=== PATIENT | female | born 1985 | race Caucasian/White ===

== ENCOUNTER 2018-05-23 05:36 | Inpatient (IN) | payer BC ==
[~2018-05-23] VITALS: Ht 157.5 cm; Wt 87.7 kg
[2018-05-23] MEDS ORDERED: LACTATED RINGERS 1,000 ML IV SCH ×4 (05:39→07:21)
[2018-05-23 05:46] VITALS: BP 130/66
[2018-05-23] MEDS ORDERED: NEWBORN KIT ONE (05:46)
[2018-05-23] MEDS ORDERED: PREN-3 PO (05:53)
[2018-05-23] MEDS ORDERED: LACTATED RINGERS 1,000 ML IVBOLUS ONE (06:00)
[2018-05-23] MEDS ORDERED: METOCLOPRAMIDE 5 MG/ML, 2ML IV ONE (06:00)
[2018-05-23] MEDS ORDERED: SODIUM CITRATE/CITRIC ACID 30 ML UDC PO ONE (06:00)
[2018-05-23] MEDS ORDERED: OXYTOCIN 30U/ 0.9% NaCL 500ML 500 ML ONE ×2 (06:19→11:03)
[2018-05-23 06:42] LABS: BASOPHILS # (AUTO) 0.02 x10^3/uL (0-0.1); BASOPHILS % (AUTO) 0 % (0-1); EOSINOPHILS # (AUTO) 0.02 x10^3/uL (0-0.4); EOSINOPHILS % (AUTO) 0 % (1-7); LYMPHOCYTES % (AUTO) 25 % (22-44); MD SCAN; MEAN CORPUSCULAR HEMOGLOBIN 29.6 pg (27.0-34.8); MEAN CORPUSCULAR VOLUME 87.2 fL (80-100); MEAN PLATELET VOLUME 10.5 fL (7.4-10.4); MONOCYTES # (AUTO) 0.38 x10^3/uL (0.2-0.8); MONOCYTES % (AUTO) 6 % (2-9); NEUTROPHILS # (AUTO) 4.58 x10^3/uL (1.8-6.8); NEUTROPHILS % (AUTO) 68 % (42-75); PLATELET COUNT 109 x10^3/uL (130-400); RED BLOOD COUNT 4.67 x10^6/uL (3.82-5.3); RED CELL DISTRIBUTION WIDTH 16.3 % (9.6-15.2)
[2018-05-23] MEDS ORDERED: OXYTOCIN 10 UNITS/ML, 1ML ONE ×2 (07:01→10:46)
[2018-05-23] MEDS ORDERED: EPHEDRINE 50 MG/ML, 1ML ONE ×2 (07:01→10:46)
[2018-05-23] MEDS ORDERED: ONDANSETRON 2MG/ML, 2ML ONE ×3 (07:01→10:46)
[2018-05-23] MEDS ORDERED: CEFAZOLIN 1,000 MG ONE ×3 (07:01→11:18)
[2018-05-23] MEDS ORDERED: WATER-INJECTION,STERILE 10 ML IV ONE ×2 (07:01→10:46)
[2018-05-23] MEDS ORDERED: PHENYLEPHRINE 10 MG/ML ONE ×2 (07:01→10:46)
[2018-05-23] MEDS ORDERED: morphine SULFATE/PF 0.5 MG/ML, 10ML ONE (07:02)
[2018-05-23] MEDS ORDERED: SODIUM CITRATE/CITRIC ACID 30 ML UDC ONE (07:14)
[2018-05-23] MEDS ORDERED: METOCLOPRAMIDE 5 MG/ML, 2ML ONE (07:15)
[2018-05-23] MEDS ORDERED: OXYTOCIN 30U/ 0.9% NaCL 500ML 500 ML IV SCH (07:21)
[2018-05-23] MEDS ORDERED: morphine SULFATE 10 MG/ML, 1ML IVPush PRN (07:30)
[2018-05-23] MEDS ORDERED: ONDANSETRON 2MG/ML, 2ML IV PRN (07:30)
[2018-05-23] MEDS ORDERED: MISOPROSTOL 200 MCG TABLET PR PRN (07:30)
[2018-05-23] MEDS ORDERED: RHOGAM FROM BLOOD BANK 1 NOTE EA IM/IV ONE (07:30)
[2018-05-23] MEDS ORDERED: CALCIUM CARBONATE 500 MG TAB.CHEW PO PRN (07:30)
[2018-05-23] MEDS ORDERED: MEASLES,MUMPS&RUBELLA VACC/PF 0.5 ML SQ-VACC PRN (07:30)
[2018-05-23] MEDS ORDERED: DOCUSATE 100 MG CAPSULE PO PRN (07:30)
[2018-05-23] MEDS ORDERED: ACETAMINOPHEN 325 MG TABLET PO PRN ×2 (07:30)
[2018-05-23] MEDS ORDERED: PRENATAL VIT/IRON/FA 1 EACH TABLET PO SCH (09:00)
[2018-05-23] MEDS: OXYTOCIN 30U/ 0.9% NaCL 500ML 500 ML IV SCH ×2 (09:41→11:05)
[2018-05-23] MEDS ORDERED: CARBOPROST TROMETHAMINE 250 MCG/ML, 1ML IM ONE ×3 (10:10→12:00)
[2018-05-23] MEDS ORDERED: TRANEXAMIC ACID 100 MG/ML, 10ML ONE (10:14)
[2018-05-23] MEDS ORDERED: FENTANYL PF 250 MCG/5ML ONE (10:22)
[2018-05-23] MEDS ORDERED: PROPOFOL 10 MG/ML, 20ML ONE ×2 (10:46→11:17)
[2018-05-23] MEDS ORDERED: LIDOCAINE-MPF 2% ,5ML ONE (10:46)
[2018-05-23] MEDS ORDERED: SUCCINYLCHOLINE 20 MG/ML, 10ML ONE (10:46)
[2018-05-23 10:55] LABS: BASOPHILS # (AUTO) 0.02 x10^3/uL (0-0.1); BASOPHILS % (AUTO) 0 % (0-1); EOSINOPHILS # (AUTO) 0.01 x10^3/uL (0-0.4); EOSINOPHILS % (AUTO) 0 % (1-7); LYMPHOCYTES # (AUTO) 1.08 x10^3/uL (1-3.4); LYMPHOCYTES % (AUTO) 14 % (22-44); MD NO; MEAN CORPUSCULAR HEMOGLOBIN 29.8 pg (27.0-34.8); MEAN CORPUSCULAR HGB CONC 34.4 g/dL (32.4-35.8); MEAN CORPUSCULAR VOLUME 86.4 fL (80-100); MEAN PLATELET VOLUME 9.8 fL (7.4-10.4); MONOCYTES % (AUTO) 4 % (2-9); NEUTROPHILS # (AUTO) 6.26 x10^3/uL (1.8-6.8); NEUTROPHILS % (AUTO) 82 % (42-75); PLATELET COUNT 103 x10^3/uL (130-400); RED BLOOD COUNT 3.63 x10^6/uL (3.82-5.3); RED CELL DISTRIBUTION WIDTH 16.1 % (9.6-15.2)
[2018-05-23 10:59] LABS: ALANINE AMINOTRANSFERASE 10 U/L (12-78); ALBUMIN 1.9 g/dL (3.4-5.0); ANION GAP 10 mmol/L (5-15); CALCIUM 7.8 mg/dL (8.5-10.1); CHLORIDE 111 mmol/L (98-107); CREATININE 0.54 mg/dL (0.55-1.02)
[2018-05-23] MEDS ORDERED: CEFAZOLIN PMX 2GM/50ML 50 ML IVPB SCH (11:00)
[2018-05-23 11:01] LABS: ALKALINE PHOSPHATASE 124 U/L (45-117); BILIRUBIN,TOTAL 0.2 mg/dL (0.2-1.0); TOTAL PROTEIN 4.6 g/dL (6.4-8.2)
[2018-05-23] MEDS ORDERED: GLYCOPYRROLATE 0.4 MG/2 ML, 2ML ONE ×2 (11:17)
[2018-05-23] MEDS ORDERED: ROCURONIUM 10MG/ML,5ML ONE (11:17)
[2018-05-23] MEDS ORDERED: NEOSTIGMINE 1 MG/ML, 10ML ONE (11:17)
[2018-05-23] MEDS ORDERED: METHYLERGONOVINE 0.2 MG/ML IM PRN (11:30)
[2018-05-23] MEDS ORDERED: MISOPROSTOL 200 MCG TABLET ONE (11:39)
[2018-05-23] MEDS ORDERED: METHYLERGONOVINE 0.2 MG/ML IM ONE (12:00)
[2018-05-23] MEDS ORDERED: KETOROLAC 30 MG/1 ML ONE ×2 (12:01→20:15)
[2018-05-23] MEDS: KETOROLAC 30 MG/1 ML IV SCH ×2 (12:04→20:18)
[2018-05-23] MEDS ORDERED: morphine SULFATE 10 MG/ML, 1ML ONE (12:17)
[2018-05-23] MEDS: morphine SULFATE 10 MG/ML, 1ML IVPush PRN (12:19)
[2018-05-23] MEDS ORDERED: MISOPROSTOL 200 MCG TABLET PR ONE (12:30)
[2018-05-23 13:32] LABS: BASOPHILS # (AUTO) 0.04 x10^3/uL (0-0.1); BASOPHILS % (AUTO) 0 % (0-1); EOSINOPHILS % (AUTO) 0 % (1-7); LYMPHOCYTES # (AUTO) 1.41 x10^3/uL (1-3.4); LYMPHOCYTES % (AUTO) 11 % (22-44); MD SCAN; MEAN CORPUSCULAR HEMOGLOBIN 29.4 pg (27.0-34.8); MEAN CORPUSCULAR VOLUME 86.7 fL (80-100); MEAN PLATELET VOLUME 10.6 fL (7.4-10.4); MONOCYTES % (AUTO) 4 % (2-9); NEUTROPHILS # (AUTO) 11.28 x10^3/uL (1.8-6.8); NEUTROPHILS % (AUTO) 85 % (42-75); PLATELET COUNT 114 x10^3/uL (130-400); RED CELL DISTRIBUTION WIDTH 15.7 % (9.6-15.2)
[2018-05-23 16:22] LABS: BASOPHILS % (AUTO) 0 % (0-1); EOSINOPHILS % (AUTO) 0 % (1-7); LYMPHOCYTES # (AUTO) 1.15 x10^3/uL (1-3.4); LYMPHOCYTES % (AUTO) 9 % (22-44); MD SCAN; MEAN CORPUSCULAR HEMOGLOBIN 28.9 pg (27.0-34.8); MEAN CORPUSCULAR HGB CONC 33.2 g/dL (32.4-35.8); MEAN PLATELET VOLUME 10.5 fL (7.4-10.4); MONOCYTES # (AUTO) 0.62 x10^3/uL (0.2-0.8); MONOCYTES % (AUTO) 5 % (2-9); NEUTROPHILS # (AUTO) 11.67 x10^3/uL (1.8-6.8); NEUTROPHILS % (AUTO) 87 % (42-75); PLATELET COUNT 118 x10^3/uL (130-400); RED BLOOD COUNT 3.61 x10^6/uL (3.82-5.3); RED CELL DISTRIBUTION WIDTH 15.9 % (9.6-15.2)
[2018-05-23] MEDS: CEFAZOLIN 2,000 MG in SODIUM CHLORIDE 0.9% 50 ML IV SCH (19:14)
[2018-05-23 20:29] LABS: BASOPHILS # (AUTO) 0.03 x10^3/uL (0-0.1); BASOPHILS % (AUTO) 0 % (0-1); EOSINOPHILS % (AUTO) 0 % (1-7); LYMPHOCYTES # (AUTO) 1.32 x10^3/uL (1-3.4); LYMPHOCYTES % (AUTO) 10 % (22-44); MD NO; MEAN CORPUSCULAR HEMOGLOBIN 29.9 pg (27.0-34.8); MEAN CORPUSCULAR HGB CONC 34.1 g/dL (32.4-35.8); MEAN CORPUSCULAR VOLUME 87.8 fL (80-100); MEAN PLATELET VOLUME 10.7 fL (7.4-10.4); MONOCYTES # (AUTO) 0.63 x10^3/uL (0.2-0.8); MONOCYTES % (AUTO) 5 % (2-9); NEUTROPHILS # (AUTO) 10.86 x10^3/uL (1.8-6.8); NEUTROPHILS % (AUTO) 85 % (42-75); PLATELET COUNT 109 x10^3/uL (130-400); RED BLOOD COUNT 3.11 x10^6/uL (3.82-5.3); RED CELL DISTRIBUTION WIDTH 16.1 % (9.6-15.2)
[2018-05-23] MEDS ORDERED: OXYcodone/APAP 5/325MG TABLET ONE (22:34)
[2018-05-23] MEDS: OXYcodone/APAP 5/325MG TABLET PO PRN (22:36)
[2018-05-24] MEDS: CEFAZOLIN 2,000 MG in SODIUM CHLORIDE 0.9% 50 ML IV SCH ×4 (01:05→21:36)
[2018-05-24] MEDS ORDERED: morphine SULFATE 10 MG/ML, 1ML ONE (01:46)
[2018-05-24] MEDS ORDERED: KETOROLAC 30 MG/1 ML ONE ×4 (01:49→21:02)
[2018-05-24] MEDS: morphine SULFATE 10 MG/ML, 1ML IVPush PRN (01:50)
[2018-05-24] MEDS: KETOROLAC 30 MG/1 ML IV SCH ×4 (01:50→21:07)
[2018-05-24 06:14] LABS: MEAN CORPUSCULAR HEMOGLOBIN 29.7 pg (27.0-34.8); MEAN CORPUSCULAR VOLUME 87.5 fL (80-100); MEAN PLATELET VOLUME 10.4 fL (7.4-10.4); PLATELET COUNT 100 x10^3/uL (130-400); RED BLOOD COUNT 2.57 x10^6/uL (3.82-5.3); RED CELL DISTRIBUTION WIDTH 16.3 % (9.6-15.2)
[2018-05-24 06:37] LABS: BASOPHILS # (AUTO) 0.02 x10^3/uL (0-0.1); BASOPHILS % (AUTO) 0 % (0-1); EOSINOPHILS % (AUTO) 0 % (1-7); LYMPHOCYTES # (AUTO) 1.29 x10^3/uL (1-3.4); LYMPHOCYTES % (AUTO) 16 % (22-44); MD SCAN; MONOCYTES # (AUTO) 0.41 x10^3/uL (0.2-0.8); MONOCYTES % (AUTO) 5 % (2-9); NEUTROPHILS # (AUTO) 6.18 x10^3/uL (1.8-6.8); NEUTROPHILS % (AUTO) 78 % (42-75)
[2018-05-24] MEDS ORDERED: OXYcodone/APAP 5/325MG TABLET ONE ×3 (07:53→21:39)
[2018-05-24] MEDS: OXYcodone/APAP 5/325MG TABLET PO PRN ×3 (07:59→21:40)
[2018-05-24] MEDS ORDERED: DIPHENHYDRAMINE 25 MG CAPSULE ONE (08:55)
[2018-05-24] MEDS ORDERED: DIPHENHYDRAMINE 25 MG CAPSULE PO ONE (09:00)
[2018-05-24 09:40] VITALS: BP 107/53
[2018-05-24 10:00] VITALS: BP 104/58
[2018-05-24 10:35] VITALS: BP 100/55
[2018-05-24 10:53] VITALS: BP 114/55
[2018-05-24 14:05] LABS: BASOPHILS # (AUTO) 0.02 x10^3/uL (0-0.1); BASOPHILS % (AUTO) 0 % (0-1); EOSINOPHILS % (AUTO) 0 % (1-7); LYMPHOCYTES # (AUTO) 1.26 x10^3/uL (1-3.4); LYMPHOCYTES % (AUTO) 18 % (22-44); MEAN CORPUSCULAR HEMOGLOBIN 29.9 pg (27.0-34.8); MEAN CORPUSCULAR HGB CONC 33.9 g/dL (32.4-35.8); MEAN CORPUSCULAR VOLUME 88.1 fL (80-100); MEAN PLATELET VOLUME 9.9 fL (7.4-10.4); MONOCYTES # (AUTO) 0.32 x10^3/uL (0.2-0.8); MONOCYTES % (AUTO) 5 % (2-9); NEUTROPHILS % (AUTO) 77 % (42-75); PLATELET COUNT 104 x10^3/uL (130-400); RED BLOOD COUNT 3.27 x10^6/uL (3.82-5.3); RED CELL DISTRIBUTION WIDTH 16.3 % (9.6-15.2)
[2018-05-24 14:30] LABS: MD NO
[2018-05-25] MEDS ORDERED: KETOROLAC 30 MG/1 ML ONE (02:52)
[2018-05-25] MEDS: KETOROLAC 30 MG/1 ML IV SCH (02:58)
[2018-05-25] MEDS: CEFAZOLIN 2,000 MG in SODIUM CHLORIDE 0.9% 50 ML IV SCH (03:32)
[2018-05-25] MEDS ORDERED: OXYcodone/APAP 5/325MG TABLET ONE ×2 (03:36→08:38)
[2018-05-25] MEDS: OXYcodone/APAP 5/325MG TABLET PO PRN ×4 (03:37→20:14)
[2018-05-25 06:00] LABS: MEAN CORPUSCULAR HEMOGLOBIN 29.1 pg (27.0-34.8); MEAN CORPUSCULAR HGB CONC 32.9 g/dL (32.4-35.8); MEAN CORPUSCULAR VOLUME 88.4 fL (80-100); RED BLOOD COUNT 2.96 x10^6/uL (3.82-5.3); RED CELL DISTRIBUTION WIDTH 16.5 % (9.6-15.2)
[2018-05-25 06:34] LABS: BASOPHILS # (AUTO) 0.01 x10^3/uL (0-0.1); BASOPHILS % (AUTO) 0 % (0-1); EOSINOPHILS # (AUTO) 0.06 x10^3/uL (0-0.4); EOSINOPHILS % (AUTO) 1 % (1-7); LYMPHOCYTES # (AUTO) 1.18 x10^3/uL (1-3.4); LYMPHOCYTES % (AUTO) 19 % (22-44); MD SCAN; MEAN PLATELET VOLUME 9.9 fL (7.4-10.4); MONOCYTES # (AUTO) 0.29 x10^3/uL (0.2-0.8); MONOCYTES % (AUTO) 5 % (2-9); NEUTROPHILS # (AUTO) 4.56 x10^3/uL (1.8-6.8); NEUTROPHILS % (AUTO) 75 % (42-75); PLATELET COUNT 112 x10^3/uL (130-400)
[2018-05-25] MEDS ORDERED: OXYcodone/APAP 5/325MG TABLET PO PRN (12:00)
[2018-05-25] MEDS ORDERED: ACETAMINOPHEN 325 MG TABLET PO PRN ×2 (12:00)
[2018-05-25] MEDS: DOCUSATE 100 MG CAPSULE PO PRN ×2 (12:48→20:15)
[2018-05-25 20:00] VITALS: BP 116/74
[2018-05-26] MEDS: OXYcodone/APAP 5/325MG TABLET PO PRN ×2 (02:59→12:43)
[2018-05-26 03:00] VITALS: BP 111/70
[2018-05-26 07:00] VITALS: BP 123/72
[2018-05-26] MEDS: DOCUSATE 100 MG CAPSULE PO PRN (08:59)
[2018-05-26] MEDS: PRENATAL VIT/IRON/FA 1 EACH TABLET PO SCH (08:59)
[2018-05-26 09:12] VITALS: BP 106/66
[2018-05-26] MEDS: IBUPROFEN 600 MG TABLET PO PRN (18:31)
[2018-05-26 20:15] VITALS: BP 132/84
[2018-05-26] MEDS: OXYTOCIN 30U/ 0.9% NaCL 500ML 500 ML IV SCH (20:15)
[2018-05-27] MEDS: IBUPROFEN 600 MG TABLET PO PRN ×2 (01:34→07:41)
[2018-05-27] MEDS: DOCUSATE 100 MG CAPSULE PO PRN ×2 (01:34→07:41)
[2018-05-27] MEDS: OXYTOCIN 30U/ 0.9% NaCL 500ML 500 ML IV SCH (03:31)
[2018-05-27] MEDS: PRENATAL VIT/IRON/FA 1 EACH TABLET PO SCH (07:41)
[2018-05-27] MEDS ORDERED: IBUP-1222 PO (08:04)
[2018-05-27] MEDS ORDERED: OXYC-302 PO (08:05)
[2018-05-27 08:40] VITALS: BP 121/78
== END 2018-05-27 10:34 | disposition home or self-care (01) | DRG 765 ==
LOC: LDIP 05:36 → 2NW 05-25 09:34
PROVIDERS: ADMIT Obstetrics & Gynecology; ATTEND Obstetrics & Gynecology
PROC: 10D00Z1 Extraction of Products of Conception, Low, Open Approach (ICD-10-PCS; principal; 2018-05-23)
PROC: 0UB70ZZ Excision of Bilateral Fallopian Tubes, Open Approach (ICD-10-PCS; 2018-05-23)
PROC: 0W3R7ZZ Control Bleeding in Genitourinary Tract, Via Natural or Artificial Opening (ICD-10-PCS; 2018-05-23)
PROC: 0UDB7ZZ Extraction of Endometrium, Via Natural or Artificial Opening (ICD-10-PCS; 2018-05-23)
PROC: 30233N1 Transfusion of Nonautologous Red Blood Cells into Peripheral Vein, Percutaneous Approach (ICD-10-PCS; 2018-05-23)
DX: O34.211 Maternal care for low transverse scar from previous cesarean delivery (principal); O72.1 Other immediate postpartum hemorrhage; Z37.0 Single live birth; O69.81X0 Labor and delivery complicated by cord around neck, without compression, not applicable or unspecified; Z30.2 Encounter for sterilization; Z3A.39 39 weeks gestation of pregnancy
CPT/HCPCS: 36415; 80053; 82803; 85025; 85384; 86850; 86900; 86923; 88302; G0378; J0690; J1885; J2274; J2405; J2704; J2710; J3010; J3490; J0330; J2210; J2270; J2370; J2590; J2765; J7120; P9016; Q0163